=== PATIENT | female | born 1980 | race Caucasian/White ===

== ENCOUNTER 2020-01-07 15:13 | Emergency (ER) | payer OTHER ==
[2020-01-07] MEDS ORDERED: Bacitracin Oint 1 GM U/D Packet TOP ONE (15:20)
--- NOTE | 2020-01-07 15:31 | EDM.PDOC ---
ED HPI GENERAL MEDICAL PROBLEM - General Stated Complaint: NAIL IN LEFT FOOT Time Seen by Provider: 01/07/20 15:15 Source of Information: Reports: Patient History Limitations: Reports: No Limitations - History of Present Illness INITIAL COMMENTS - FREE TEXT/NARRATIVE: 39-year-old female, healthy, was out at a local garbage down when she stepped on a metal screw that impaled the sole of her left foot near the forefoot. No other injury. Onset: Sudden Duration: Hour(s): (1 hour ago) Location: Reports: Lower Extremity, Left Associated Symptoms: Reports: No Other Symptoms ED ROS GENERAL - Review of Systems Review Of Systems: See Below Constitutional: Denies: Fever, Chills Respiratory: Denies: Shortness of Breath Cardiovascular: Denies: Chest Pain Neurological: Reports: Other (Toes are numb from hyperventilation) Psychiatric: Reports: Anxiety ED EXAM, SKIN/RASH Exam: See Below Exam Limited By: No Limitations General Appearance: Alert, Anxious, Mild Distress Respiratory/Chest: No Respiratory Distress Extremities: Other (Patient has just over 1 inch of a metal screw exiting the forefoot of the left foot. It is through her plastic shoe.) Neurological: Alert, Oriented Psychiatric: Anxious Course - Vital Signs Last Recorded V/S: Last Vital Signs Temp 96.8 F L 01/07/20 15:51 Pulse 87 01/07/20 15:51 Resp 16 01/07/20 15:51 BP 138/86 01/07/20 15:51 Pulse Ox 99 01/07/20 15:51 - Orders/Labs/Meds Orders: Active Orders 24 hr Category Date Time Status Foot 2V Lt [CR] Stat Exams 01/07/20 15:21 Taken Meds: Medications Discontinued Medications Generic Name Dose Route Start Last Admin Trade Name Freq PRN Reason Stop Dose Admin Bacitracin 1 dose 01/07/20 15:20 01/07/20 15:53 Bacitracin Oint 1 Gm TOP 01/07/20 15:21 1 dose ONETIME ONE Administration Diphtheria/Tetanus/Acell Pertussis 0.5 ml 01/07/20 15:38 01/07/20 15:54 Boostrix IM 01/07/20 15:39 0.5 ml .ONCE ONE Administration - Re-Assessments/Exams Free Text/Narrative Re-Assessment/Exam: 01/07/20 15:40 The shoe was carefully cut off exposing the embedded foreign body. Alcohol was used to sterilize the skin and 1% lidocaine with epinephrine was infiltrated around the foreign body. It was then removed without difficulty, the wound was flushed thoroughly and cleaned and covered with bacitracin. She was given a Tdap booster and placed on Augmentin 875 for at least 7 days. A pressure dressing was applied and she can increase activity as tolerated, recheck if concerns of infection or not doing satisfactorily. 01/07/20 17:55 Foot x-ray was negative for foreign body or fracture. Departure - Departure Time of Disposition: 15:58 Disposition: Home, Self-Care 01 Clinical Impression: Puncture wound of left foot with foreign body Qualifiers: Encounter type: initial encounter Qualified Code(s): S91.342A - Puncture wound with foreign body, left foot, initial encounter - Discharge Information Instructions: Puncture Wound, [id number] Referrals: PCP,None [Primary Care Provider] - Forms: ED Department Discharge Care Plan Goals: Take antibiotic twice daily for at least 7 days, keep the foot clean and use ibuprofen or naproxen for any discomfort. Increase activity as tolerated. Recheck if concerns of infection or not healing satisfactorily. Sepsis Event Note (ED) - Focused Exam Vital Signs: Vital Signs Temp Pulse Resp BP Pulse Ox 01/07/20 15:51 96.8 F L 87 16 138/86 99 - My Orders Last 24 Hours: My Active Orders 01/07/20 15:21 Foot 2V Lt [CR] Stat - Assessment/Plan Last 24 Hours: My Active Orders 01/07/20 15:21 Foot 2V Lt [CR] Stat
[2020-01-07] MEDS ORDERED: Diphtheria,Pertussis(Acell),Tetanus Vaccine 0.5 ML Syringe IM ONE (15:38)
--- NOTE | 2020-01-10 08:57 | CR ---
FOOT RIGHT 3 views CLINICAL HISTORY:Stepped on nail FINDINGS:There is soft tissue swelling in the forefoot. There is no radiopaque foreign body. No fracture or osseous lesion is seen Impression: Soft tissue swelling No fracture or foreign body
== END 2020-01-07 15:58 | disposition home or self-care (01) ==
LOC: JP.ED 15:13
DX: S91.342A Puncture wound with foreign body, left foot, initial encounter (principal); Z23 Encounter for immunization; W45.0XXA Nail entering through skin, initial encounter
CPT/HCPCS: 28190; 73620-26-LT; 73620-LT; 90471; 90715; 99282; 99283-25